=== PATIENT | male | born 1985 | race American Indian/Alaskan Native ===

== ENCOUNTER 2017-01-10 19:20 | Emergency (ER) | payer SELFPAY ==
[2017-01-10 19:30] VITALS: BP 119/79
[2017-01-10 19:59] LABS: Hematocrit 48.9 % (35.5-45.6); Mean Corpuscular HGB Conc 33 % (32-34); Mean Corpuscular Hemoglobin 29 pg (28-32); Mean Corpuscular Volume 88 fl (84-94); Platelet Count 195 K/mm3 (140-440); Red Blood Count 5.54 M/mm3 (3.65-5.03); White Blood Count 12.5 K/mm3 (4.5-11.0)
[2017-01-10 20:08] LABS: Alanine Aminotransferase 31 units/L (7-56); Albumin 4.6 g/dL (3.9-5); Albumin/Globulin Ratio 1.5 %; Alkaline Phosphatase 63 units/L (35-129); Anion Gap 21 mmol/L; BUN/Creatinine Ratio 15.83; Blood Urea Nitrogen 19 mg/dL (9-20); Calcium 9.6 mg/dL (8.4-10.2); Carbon Dioxide 25 mmol/L (22-30); Chloride 97.8 mmol/L (98-107); Glucose 102 mg/dL (75-100); Lipase 21 units/L (13-60); Potassium 3.9 mmol/L (3.6-5.0); Sodium 140 mmol/L (137-145); Total Protein 7.6 g/dL (6.3-8.2)
[2017-01-10 20:50] LABS: Blastocytes % (Manual) 0 %
[2017-01-10 20:51] LABS: Basophils % (Manual) 0 % (0.0-1.8); Diff Status Complete; Platelet Estimate Consistent w Auto
[2017-01-11 00:55] LABS: Bilirubin,Urine NEG (Negative); Blood,Urine NEG (Negative); Ketones,Urine NEG (Negative); Leukocyte Esterase,Urine NEG (Negative); Mucus,Urine 2+ /HPF; Nitrite,Urine NEG (Negative); Urobilinogen,Urine < 2.0 mg/dL (<2.0)
[2017-01-11 01:00] LABS: WBC,Urine < 1.0 /HPF (0.0-6.0)
--- NOTE | 2017-01-14 15:54 | ED Elopement Review ---
ED Pt Elopement review - Results review Lab results: Laboratory Tests 01/10/17 01/10/17 01/10/17 19:36 19:36 23:48 WBC 12.5 H RBC 5.54 H Hgb 16.0 H Hct 48.9 H MCV 88 MCH 29 MCHC 33 RDW 14.0 Plt Count 195 Add Manual Diff Complete Total Counted 100 Seg Neutrophils % Architecture Consultant Seg Neuts % (Manual) 83.0 H Band Neutrophils % 9.0 Lymphocytes % (Manual) 1.0 L Reactive Lymphs % (Man) 0 Monocytes % (Manual) 6.0 Eosinophils % (Manual) 1.0 Basophils % (Manual) 0 Metamyelocytes % 0 Myelocytes % 0 Promyelocytes % 0 Blast Cells % 0 Nucleated RBC % Not Reportable Seg Neutrophils # Man 10.4 H Band Neutrophils # 1.1 Lymphocytes # (Manual) 0.1 L Abs React Lymphs (Man) 0.0 Monocytes # (Manual) 0.8 Eosinophils # (Manual) 0.1 Basophils # (Manual) 0.0 Metamyelocytes # 0.0 Myelocytes # 0.0 Promyelocytes # 0.0 Blast Cells # 0.0 WBC Morphology Not Reportable Hypersegmented Neuts Not Reportable Hyposegmented Neuts Not Reportable Hypogranular Neuts Not Reportable Smudge Cells Not Reportable Toxic Granulation Not Reportable Toxic Vacuolation Not Reportable Dohle Bodies Not Reportable Pelger-Huet Anomaly Not Reportable Paolo Rods Not Reportable Platelet Estimate Consistent w auto Clumped Platelets Not Reportable Plt Clumps, EDTA Not Reportable Large Platelets Not Reportable Giant Platelets Not Reportable Platelet Satelliting Not Reportable Plt Morphology Comment Not Reportable RBC Morphology Not Reportable Dimorphic RBCs Not Reportable Polychromasia Not Reportable Hypochromasia Not Reportable Poikilocytosis Not Reportable Anisocytosis Not Reportable Microcytosis Not Reportable Macrocytosis Not Reportable Spherocytes Not Reportable Pappenheimer Bodies Not Reportable Sickle Cells Not Reportable Target Cells Not Reportable Tear Drop Cells Not Reportable Ovalocytes Not Reportable Helmet Cells Not Reportable [place] Bodies Not Reportable [place] Rings Not Reportable Zulema Cells Not Reportable Bite Cells Not Reportable Crenated Cell Not Reportable Elliptocytes Not Reportable Acanthocytes (Spur) Not Reportable Rouleaux Not Reportable Hemoglobin C Crystals Not Reportable Schistocytes Not Reportable Malaria parasites Not Reportable Jn Bodies Not Reportable Hem Pathologist Commnt No Sodium 140 Potassium 3.9 Chloride 97.8 L Carbon Dioxide 25 Anion Gap 21 BUN 19 Creatinine 1.2 Estimated GFR > 60 BUN/Creatinine Ratio 15.83 Glucose 102 H Calcium 9.6 Total Bilirubin 0.70 AST 27 ALT 31 Alkaline Phosphatase 63 Total Protein 7.6 Albumin 4.6 Albumin/Globulin Ratio 1.5 Lipase 21 Urine Color Yellow Urine Turbidity Turbid Urine pH 5.0 Ur Specific [place] 1.031 H Urine Protein 30 mg/dl Urine Glucose (UA) Neg Urine Ketones Neg Urine Blood Neg Urine Nitrite Neg Urine Bilirubin Neg Urine Urobilinogen < 2.0 Ur Leukocyte Esterase Neg Urine WBC (Auto) < 1.0 Urine RBC (Auto) 16.0 U Epithel Cells (Auto) 1.0 Amorphous Crystals 2+ Urine Mucus 2+ - Call Back decision Pt Call Back Decision: No action required
== END 2017-01-11 07:42 | disposition left against medical advice (07) ==
LOC: ED 19:20
DX: R10.10 Upper abdominal pain, unspecified (principal); R11.0 Nausea; R19.7 Diarrhea, unspecified; Z53.21 Procedure and treatment not carried out due to patient leaving prior to being seen by health care provider
CPT/HCPCS: 36415; 80053; 81001; 83690; 85007; 85025

== ENCOUNTER 2020-01-20 22:22 | Emergency (ER) | payer OTHER ==
[2020-01-20 22:27] VITALS: BP 129/83
[2020-01-21] MEDS ORDERED: IBUPROFEN 600 MG TAB PO ONE (00:19)
[2020-01-21] MEDS ORDERED: ACETAMINOPHEN 500 MG TAB PO ONE (00:19)
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
== END 2020-01-21 01:31 | disposition home or self-care (01) ==
LOC: ED 22:22
DX: S29.012A Strain of muscle and tendon of back wall of thorax, initial encounter (principal); M62.830 Muscle spasm of back; M62.838 Other muscle spasm; V89.2XXA Person injured in unspecified motor-vehicle accident, traffic, initial encounter; Y93.89 Activity, other specified; Y92.89 Other specified places as the place of occurrence of the external cause; Y99.8 Other external cause status
CPT/HCPCS: 72040; 72070; 72100

== ENCOUNTER 2021-05-01 12:40 | Emergency (ER) | payer OTHER ==
[2021-05-01 13:08] VITALS: BP 130/84
--- NOTE | 2021-05-01 13:26 | Emergency Department Report ---
- General Chief Complaint: Pain General Stated Complaint: HEADACHE/DIZZY/COVID EXPOSURE Time Seen by Provider: 05/01/21 13:22 Source: patient Mode of arrival: Ambulatory Limitations: No Limitations - History of Present Illness Initial Comments: 35-year-old -Ivorian male presents to the emergency room reporting has a headache body aches some mild dizziness x1 week. Patient is not Covid vaccinated. Patient does admit to a positive exposure at work. Patient has not tested for Covid. He states he has been taking ibuprofen. Denies any cough no fever or chills. Onset/Timin -: week(s) Severity: mild Quality: aching Consistency: intermittent Improves With: nothing Worsens With: nothing Context: sick contacts - Related Data Previous Rx's Medication Instructions Recorded Last Taken Type Cyclobenzaprine HCl [Flexeril 5 MG 5 mg PO Q6HR #20 tablet 04/27/15 Unknown Rx TAB] Ibuprofen [Motrin] 600 mg PO Q8H PRN #30 tablet 01/21/20 Unknown Rx tiZANidine [Zanaflex 4mg TAB] 4 mg PO Q8H PRN #21 tablet 01/21/20 Unknown Rx traMADoL [Ultram 50 MG tab] 50 mg PO Q8HR PRN #12 tablet 01/21/20 Unknown Rx Allergies Allergy/AdvReac Type Severity Reaction Status Date / Time No Known Allergies Allergy Verified 01/20/20 22:26 ED Review of Systems ROS: Stated complaint: HEADACHE/DIZZY/COVID EXPOSURE Other details as noted in HPI Comment: All other systems reviewed and negative ED Past Medical Hx - Past Medical History Previous Medical History?: No - Surgical History Additional Surgical History: Appendectomy. Hernia Repair - Social History Smoking Status: Never Smoker Substance Use Type: None - Medications Home Medications: Home Medications Medication Instructions Recorded Confirmed Last Taken Type Cyclobenzaprine HCl [Flexeril 5 MG 5 mg PO Q6HR #20 tablet 04/27/15 Unknown Rx TAB] Ibuprofen [Motrin] 600 mg PO Q8H PRN #30 tablet 01/21/20 Unknown Rx tiZANidine [Zanaflex 4mg TAB] 4 mg PO Q8H PRN #21 tablet 01/21/20 Unknown Rx traMADoL [Ultram 50 MG tab] 50 mg PO Q8HR PRN #12 tablet 01/21/20 Unknown Rx ED Physical Exam - General Limitations: No Limitations General appearance: alert, in no apparent distress - Head Head exam: Present: atraumatic, normocephalic - Eye Eye exam: Present: normal appearance - ENT ENT exam: Present: mucous membranes moist - Neck Neck exam: Present: normal inspection - Respiratory Respiratory exam: Present: normal lung sounds bilaterally. Absent: respiratory distress - Cardiovascular Cardiovascular Exam: Present: regular rate, normal rhythm. Absent: systolic murmur, diastolic murmur, rubs, gallop - GI/Abdominal GI/Abdominal exam: Present: soft, normal bowel sounds - Rectal Rectal exam: Present: deferred - Extremities Exam Extremities exam: Present: normal inspection - Back Exam Back exam: Present: normal inspection - Neurological Exam Neurological exam: Present: alert, oriented X3 - Psychiatric Psychiatric exam: Present: normal affect, normal mood - Skin Skin exam: Present: warm, dry, intact, normal color. Absent: rash ED Course Vital Signs 05/01/21 13:06 Temperature 97.7 F Pulse Rate 66 Respiratory 18 Rate Blood Pressure 130/84 [Left] O2 Sat by Pulse 99 Oximetry ED Medical Decision Making - Medical Decision Making 35-year-old -I[place]ian male presents to the emergency room reporting has a headache body aches some mild dizziness x1 week. Patient is not Covid vaccinated. Patient does admit to a positive exposure at work. Patient has not tested for Covid. He states he has been taking ibuprofen. Denies any cough no fever or chills. Discussed the patient that he needs to get Covid testing. Critical care attestation.: If time is entered above; I have spent that time in minutes in the direct care of this critically ill patient, excluding procedure time. ED Disposition Clinical Impression: Suspected 2019 novel coronavirus infection Disposition: HOME / SELF CARE / HOMELESS Is pt being admited?: No Does the pt Need Aspirin: No Condition: Stable Instructions: COVID-19 Frequently Asked Questions, COVID-19: How to Protect Yourself and Others - CDC Additional Instructions: Your symptoms appear most consistent with a nonspecific viral syndrome. However, given this current pandemic, COVID-19 is in the differential of possibilities. I do recommend outpatient Covid 19 testing. In the meantime, isolate/quarantine yourself and stay away from anyone who is elderly, immunocompromised or chronically ill. You can use ibuprofen every 6-8 hours and Tylenol every 4-8 hours, using the dosing on the back of the bottle, as needed for any fever or body aches. Return to the emergency department with any worsening of your symptoms, development of chest pain or shortness of breath, or with any acute distress. Referrals: VON SPARKS MD [Staff Physician] - 3-5 Days Forms: Work/School Release Form(ED)
== END 2021-05-01 13:47 | disposition home or self-care (01) ==
LOC: ED 12:40
DX: R51.9 Headache, unspecified (principal); M79.18 Myalgia, other site; R42 Dizziness and giddiness
CPT/HCPCS: 99281

== ENCOUNTER 2021-05-25 20:51 | Emergency (ER) | payer OTHER ==
[2021-05-25 21:55] VITALS: BP 122/87
--- NOTE | 2021-05-25 22:26 | Emergency Department Report ---
ED Abdominal Pain HPI - General Chief Complaint: Nausea/Vomiting/Diarrhea Stated Complaint: ABDOMINAL PAIN AND VOMITTING Time Seen by Provider: 05/25/21 22:13 Source: patient Mode of arrival: Ambulatory Limitations: No Limitations - History of Present Illness Initial Comments: 35-year-old male presents emerged part complaining of 1 week history of nausea and vomiting with vague abdominal discomfort of unknown etiology. States he initially thought he ate something day it well but the symptoms have continued since the onset feels little bit better about to 3 days ago and then reemergence of his symptoms he reports no fever, chills, sweats. No cannabis utilization MD Complaint: abdominal pain -: Gradual, days(s) (5) Location: diffuse Radiation: none Severity: mild Quality: cramping, dull Improves With: nothing Worsens With: nothing Associated Symptoms: denies other symptoms, nausea, vomiting, diarrhea. denies: constipation, dysuria, hematemesis - Related Data Previous Rx's Medication Instructions Recorded Last Taken Type Cyclobenzaprine HCl [Flexeril 5 MG 5 mg PO Q6HR #20 tablet 04/27/15 Unknown Rx TAB] Ibuprofen [Motrin] 600 mg PO Q8H PRN #30 tablet 01/21/20 Unknown Rx tiZANidine [Zanaflex 4mg TAB] 4 mg PO Q8H PRN #21 tablet 01/21/20 Unknown Rx traMADoL [Ultram 50 MG tab] 50 mg PO Q8HR PRN #12 tablet 01/21/20 Unknown Rx Hyoscyamine Subl [Levsin Sl 0.125 0.125 mg SL Q6HR PRN #20 tab 05/25/21 Unknown Rx TAB] Ondansetron [Zofran ODT TAB] 8 mg PO Q12HR #14 tab.rapdis 05/25/21 Unknown Rx Diphenoxylate/Atropine [Lomotil] 1 tab PO Q4H PRN #14 tablet 05/26/21 Unknown Rx Allergies Allergy/AdvReac Type Severity Reaction Status Date / Time No Known Allergies Allergy Verified 01/20/20 22:26 ED Review of Systems ROS: Stated complaint: ABDOMINAL PAIN AND VOMITTING Other details as noted in HPI Comment: All other systems reviewed and negative ED Past Medical Hx - Past Medical History Previous Medical History?: No - Surgical History Past Surgical History?: No Additional Surgical History: Appendectomy. Hernia Repair - Social History Smoking Status: Never Smoker Substance Use Type: None - Medications Home Medications: Home Medications Medication Instructions Recorded Confirmed Last Taken Type Cyclobenzaprine HCl [Flexeril 5 MG 5 mg PO Q6HR #20 tablet 04/27/15 Unknown Rx TAB] Ibuprofen [Motrin] 600 mg PO Q8H PRN #30 tablet 01/21/20 Unknown Rx tiZANidine [Zanaflex 4mg TAB] 4 mg PO Q8H PRN #21 tablet 01/21/20 Unknown Rx traMADoL [Ultram 50 MG tab] 50 mg PO Q8HR PRN #12 tablet 01/21/20 Unknown Rx Hyoscyamine Subl [Levsin Sl 0.125 0.125 mg SL Q6HR PRN #20 tab 05/25/21 Unknown Rx TAB] Ondansetron [Zofran ODT TAB] 8 mg PO Q12HR #14 tab.rapdis 05/25/21 Unknown Rx Diphenoxylate/Atropine [Lomotil] 1 tab PO Q4H PRN #14 tablet 05/26/21 Unknown Rx ED Physical Exam - General Limitations: No Limitations General appearance: alert, in no apparent distress - Head Head exam: Present: atraumatic, normocephalic - Eye Eye exam: Present: normal appearance, PERRL Pupils: Present: normal accommodation - ENT ENT exam: Present: mucous membranes moist - Neck Neck exam: Present: normal inspection - Respiratory Respiratory exam: Present: normal lung sounds bilaterally. Absent: respiratory distress, wheezes, rales, rhonchi - Cardiovascular Cardiovascular Exam: Present: regular rate, normal rhythm. Absent: systolic murmur, diastolic murmur, rubs, gallop - GI/Abdominal GI/Abdominal exam: Present: soft, normal bowel sounds - Rectal Rectal exam: Present: deferred - Extremities Exam Extremities exam: Present: normal inspection, full ROM, normal capillary refill - Back Exam Back exam: Present: normal inspection. Absent: CVA tenderness (R), CVA tenderness (L) - Neurological Exam Neurological exam: Present: alert, oriented X3, CN II-XII intact, normal gait - Psychiatric Psychiatric exam: Present: normal affect, normal mood - Skin Skin exam: Present: warm, dry, intact, normal color. Absent: rash ED Course Vital Signs 10/11/21 10/11/21 21:50 21:53 Pulse Rate 58 L 63 Respiratory 16 Rate Blood Pressure 122/87 [Left] O2 Sat by Pulse 100 98 Oximetry Critical care attestation.: If time is entered above; I have spent that time in minutes in the direct care of this critically ill patient, excluding procedure time. ED Disposition Clinical Impression: Gastroenteritis Disposition: HOME / SELF CARE / HOMELESS Is pt being admited?: No Does the pt Need Aspirin: No Condition: Stable Instructions: Viral Gastroenteritis, Adult, Food Choices to Help Relieve Diarrhea, Adult Prescriptions: Hyoscyamine Subl [Levsin Sl 0.125 TAB] 0.125 mg SL Q6HR PRN #20 tab PRN Reason: abdominal cramps and spasms Diphenoxylate/Atropine [Lomotil] 1 tab PO Q4H PRN #14 tablet PRN Reason: Diarrhea Ondansetron [Zofran ODT TAB] 8 mg PO Q12HR #14 tab.bienvenido Referrals: [facility] [Provider Group] - 3-5 Days PRIMARY CARE, [Primary Care Provider] - 3-5 Days
== END 2021-05-26 00:30 | disposition home or self-care (01) ==
LOC: ED 20:51
DX: K52.9 Noninfective gastroenteritis and colitis, unspecified (principal)
CPT/HCPCS: 99281